=== PATIENT | female | born 1975 | race Caucasian/White ===

== ENCOUNTER 2018-10-08 16:48 | Emergency (ER) | payer SELFPAY ==
--- NOTE | 2018-10-08 16:56 | ER Report ---
History and Physical Time Seen By MD: 16:56 HPI/ROS CHIEF COMPLAINT: Alcohol withdrawal HISTORY OF PRESENT ILLNESS: This is a 43-year-old female presents to the emergency department wanting to withdrawal from alcohol. Patient states that she's had about 20 years of alcohol addiction, she states she went to couple of inpatient rehabilitation centers, was sober for about 5 years, relapsed, then was sober for the last couple years up until a couple of weeks ago, when her mother , she started drinking a 5th of whiskey a day, progressively getting worse, she states she is up here visiting a friend, she was trying to hide the amount of alcohol that she was drinking from him, however he realized that she had been drinking a substantial amount, recommended coming in for evaluation, patient is agreeable, and is here on a voluntary basis. She states that yesterday she drank roughly 2 gallons of whiskey plus a couple of fifths, woke up this morning around 11:00 began having some shaking episodes, did drink another 5th last drink was about 30-40 minutes prior to arrival. Patient has a strong odor of EtOH. She is shaking, normal speech, making good eye contact, tearful. She denies fevers or chills. No chest pain during this episode however she states that she has had episodes of chest pain in the past. No shortness of breath. No rashes. Denies suicidal or homicidal ideations. REVIEW OF SYSTEMS: Constitutional: No fever, no chills. Eyes: No discharge. ENT: No sore throat. Cardiovascular: No chest pain, no palpitations. Respiratory: No cough, no shortness of breath. Gastrointestinal: No abdominal pain, no vomiting. Genitourinary: No hematuria. Musculoskeletal: No back pain. Skin: No rashes. Neurological: As above. Psychological: As above. Allergies: Coded Allergies: No Known Allergies (Verified Allergy, Unknown, 10/08/18) Home Meds Reported Medications Gabapentin (GABAPENTIN) 300 Mg Capsule, 300 MG PO HS, CAPSULE 10/08/18 Trazodone Hcl (TRAZODONE HCL) 150 Mg Tablet, 150 MG PO QHS 10/08/18 Sertraline Hcl (SERTRALINE HCL) 100 Mg Tablet, 1 TAB PO QDAY, TAB 10/08/18 Past Medical/Surgical History The patient has a past medical and surgical history of dental surgery, tonsillectomy, , alcoholism 20 years. Reviewed Nurses Notes: Yes Constitutional Vital Sign - Last 24 Hours 10/08/18 10/08/18 10/08/18 10/08/18 16:48 16:55 17:00 17:00 Temp 98.7 Pulse 128 130 Resp 14 17 B/P (MAP) 127/109 (115) 125/102 (110) 127/109 Pulse Ox 92 91 O2 Delivery Room Air 10/08/18 10/08/18 10/08/18 10/08/18 17:18 17:31 17:48 18:00 Pulse 110 111 Resp 14 B/P (MAP) 121/88 (99) 120/80 (93) Pulse Ox 93 91 10/08/18 10/08/18 10/08/18 10/08/18 18:18 18:23 18:30 18:53 Pulse 123 130 127 Resp 11 17 13 B/P (MAP) ???/??? (1665) Pulse Ox 92 90 91 10/08/18 10/08/18 19:00 19:23 Pulse 128 Resp 13 B/P (MAP) 105/68 (80) Pulse Ox 91 Intake and Output0 10/08/18 10/08/18 10/09/18 15:00 23:00 07:00 Intake Total 1015.2 ml Balance 1015.2 ml Physical Exam General Appearance: The patient is alert, has no immediate need for airway protection and no signs of toxicity. Eyes: Pupils equal and round no pallor or injection. EOMs intact. ENT, Mouth: Mucous membranes are dry. Respiratory: There are no retractions, lungs are clear to auscultation. Cardiovascular: Regular rate and rhythm, no murmurs, clicks or rubs. Gastrointestinal: Abdomen is soft and non tender, no masses, bowel sounds normal. Neurological: Alert and oriented 4. Moving all extremities. Following all commands. No focal neuro deficits. Skin: Warm and dry, no rashes. Musculoskeletal: Neck is supple non tender. Extremities are nontender, nonswollen and have full range of motion. Psychological: Patient is making good eye contact, tearful, will bring her hands together periodically, she is shaky, does not appear to be agitated, very forthcoming with her current illness, no suicidal or homicidal ideations. DIFFERENTIAL DIAGNOSIS: After history and physical exam differential diagnosis was considered for alcohol intoxication. Medical Decision Making Data Points Result Diagram: 10/08/18 1700 10/08/18 1700 Laboratory Hematology Test 10/08/18 17:00 Red Blood Count 4.91 M/uL (4.17-5.56) Mean Corpuscular Volume 95.2 fL (80.0-96.0) Mean Corpuscular Hemoglobin 32.8 pg (26.0-33.0) Mean Corpuscular Hemoglobin Concent 34.4 g/dL (32.0-36.0) Red Cell Distribution Width 14.1 % (11.5-14.5) Mean Platelet Volume 8.0 fL (7.2-11.1) Neutrophils (%) (Auto) 62.3 % (39.4-72.5) Lymphocytes (%) (Auto) 27.7 % (17.6-49.6) Monocytes (%) (Auto) 9.0 % (4.1-12.4) Eosinophils (%) (Auto) 0.4 % (0.4-6.7) Basophils (%) (Auto) 0.6 % (0.3-1.4) Nucleated RBC Relative Count (auto) 0.0 /100WBC Neutrophils # (Auto) 8.7 K/uL (2.0-7.4) Lymphocytes # (Auto) 3.9 K/uL (1.3-3.6) Monocytes # (Auto) 1.3 K/uL (0.3-1.0) Eosinophils # (Auto) 0.1 K/uL (0.0-0.5) Basophils # (Auto) 0.1 K/uL (0.0-0.1) Nucleated RBC Absolute Count (auto) 0.00 K/uL Urine Color Straw Urine Clarity Clear Urine pH 7.0 pH (4.8-9.5) Urine Specific [place] 1.002 Urine Protein Negative mg/dL (NEGATIVE) Urine Glucose (UA) Negative mg/dL (NEGATIVE) Urine Ketones Trace mg/dL (NEGATIVE) Urine Blood Moderate (NEGATIVE) Urine Nitrite Negative (NEGATIVE) Urine Bilirubin Negative (NEGATIVE) Urine Urobilinogen Negative mg/dL (0.2-1.9) Urine Leukocyte Esterase Negative (NEGATIVE) Urine RBC <1 /HPF (0-2/HPF) Urine WBC 1 /HPF (0-5/HPF) Urine Squamous Epithelial Cells Few /LPF (</=FEW) Urine Bacteria Negative /HPF (NONE-FEW) Urine Mucus None /HPF (NONE-FEW) Urine HCG, Qualitative Negative (NEGATIVE) Sodium Level 140 mmol/L (137-145) Potassium Level 3.3 mmol/L (3.5-5.0) Chloride Level 104 mmol/L (98-107) Carbon Dioxide Level 18 mmol/L (22-31) Blood Urea Nitrogen 6 mg/dl (7-18) Creatinine 0.50 mg/dl (0.52-1.04) Glomerular Filtration Rate Calc > 60.0 Random Glucose 103 mg/dl (75-110) Calcium Level 9.5 mg/dl (8.4-10.2) Magnesium Level 2.0 mg/dl (1.7-2.2) Total Bilirubin 1.7 mg/dl (0.2-1.3) Aspartate Amino Transf (AST/SGOT) 99 U/L (0-35) Alanine Aminotransferase (ALT/SGPT) 54 U/L (0-56) Alkaline Phosphatase 98 U/L (0-126) Total Protein 8.4 g/dl (6.3-8.2) Albumin 5.2 g/dl (3.5-5.0) Salicylates Level < 10 mg/L Salicylate Last Dose Date unk Urine Opiates Screen Negative Acetaminophen Level < 10 ug/ml Urine Barbiturates Screen Negative Ur Tricyclic Antidepressants Screen Negative Urine Phencyclidine Screen Negative Urine Amphetamines Screen Negative Urine Benzodiazepines Screen Negative Urine Cocaine Screen Negative Urine Cannabinoids Screen Negative Serum Alcohol 249 mg/dl Chemistry Test 10/08/18 17:00 White Blood Count 14.0 k/uL (4.5-11.0) Red Blood Count 4.91 M/uL (4.17-5.56) Hemoglobin 16.1 g/dL (12.0-16.0) Hematocrit 46.8 % (34.0-47.0) Mean Corpuscular Volume 95.2 fL (80.0-96.0) Mean Corpuscular Hemoglobin 32.8 pg (26.0-33.0) Mean Corpuscular Hemoglobin Concent 34.4 g/dL (32.0-36.0) Red Cell Distribution Width 14.1 % (11.5-14.5) Platelet Count 430 K/uL (150-450) Mean Platelet Volume 8.0 fL (7.2-11.1) Neutrophils (%) (Auto) 62.3 % (39.4-72.5) Lymphocytes (%) (Auto) 27.7 % (17.6-49.6) Monocytes (%) (Auto) 9.0 % (4.1-12.4) Eosinophils (%) (Auto) 0.4 % (0.4-6.7) Basophils (%) (Auto) 0.6 % (0.3-1.4) Nucleated RBC Relative Count (auto) 0.0 /100WBC Neutrophils # (Auto) 8.7 K/uL (2.0-7.4) Lymphocytes # (Auto) 3.9 K/uL (1.3-3.6) Monocytes # (Auto) 1.3 K/uL (0.3-1.0) Eosinophils # (Auto) 0.1 K/uL (0.0-0.5) Basophils # (Auto) 0.1 K/uL (0.0-0.1) Nucleated RBC Absolute Count (auto) 0.00 K/uL Urine Color Straw Urine Clarity Clear Urine pH 7.0 pH (4.8-9.5) Urine Specific [place] 1.002 Urine Protein Negative mg/dL (NEGATIVE) Urine Glucose (UA) Negative mg/dL (NEGATIVE) Urine Ketones Trace mg/dL (NEGATIVE) Urine Blood Moderate (NEGATIVE) Urine Nitrite Negative (NEGATIVE) Urine Bilirubin Negative (NEGATIVE) Urine Urobilinogen Negative mg/dL (0.2-1.9) Urine Leukocyte Esterase Negative (NEGATIVE) Urine RBC <1 /HPF (0-2/HPF) Urine WBC 1 /HPF (0-5/HPF) Urine Squamous Epithelial Cells Few /LPF (</=FEW) Urine Bacteria Negative /HPF (NONE-FEW) Urine Mucus None /HPF (NONE-FEW) Urine HCG, Qualitative Negative (NEGATIVE) Glomerular Filtration Rate Calc > 60.0 Calcium Level 9.5 mg/dl (8.4-10.2) Magnesium Level 2.0 mg/dl (1.7-2.2) Total Bilirubin 1.7 mg/dl (0.2-1.3) Aspartate Amino Transf (AST/SGOT) 99 U/L (0-35) Alanine Aminotransferase (ALT/SGPT) 54 U/L (0-56) Alkaline Phosphatase 98 U/L (0-126) Total Protein 8.4 g/dl (6.3-8.2) Albumin 5.2 g/dl (3.5-5.0) Salicylates Level < 10 mg/L Salicylate Last Dose Date unk Urine Opiates Screen Negative Acetaminophen Level < 10 ug/ml Urine Barbiturates Screen Negative Ur Tricyclic Antidepressants Screen Negative Urine Phencyclidine Screen Negative Urine Amphetamines Screen Negative Urine Benzodiazepines Screen Negative Urine Cocaine Screen Negative Urine Cannabinoids Screen Negative Serum Alcohol 249 mg/dl Toxicology Test 10/08/18 17:00 Salicylates Level < 10 mg/L Salicylate Last Dose Date unk Urine Opiates Screen Negative Acetaminophen Level < 10 ug/ml Urine Barbiturates Screen Negative Ur Tricyclic Antidepressants Screen Negative Urine Phencyclidine Screen Negative Urine Amphetamines Screen Negative Urine Benzodiazepines Screen Negative Urine Cocaine Screen Negative Urine Cannabinoids Screen Negative Serum Alcohol 249 mg/dl Urinalysis Test 10/08/18 17:00 Urine Color Straw Urine Clarity Clear Urine pH 7.0 pH (4.8-9.5) Urine Specific [place] 1.002 Urine Protein Negative mg/dL (NEGATIVE) Urine Glucose (UA) Negative mg/dL (NEGATIVE) Urine Ketones Trace mg/dL (NEGATIVE) Urine Blood Moderate (NEGATIVE) Urine Nitrite Negative (NEGATIVE) Urine Bilirubin Negative (NEGATIVE) Urine Urobilinogen Negative mg/dL (0.2-1.9) Urine Leukocyte Esterase Negative (NEGATIVE) Urine RBC <1 /HPF (0-2/HPF) Urine WBC 1 /HPF (0-5/HPF) Urine Squamous Epithelial Cells Few /LPF (</=FEW) Urine Bacteria Negative /HPF (NONE-FEW) Urine Mucus None /HPF (NONE-FEW) Urine HCG, Qualitative Negative (NEGATIVE) ED Course/Re-evaluation Clinical Indication for ER IV: Hydration, IV Access ED Course The patient was admitted to room. A history and physical were obtained. Differential diagnoses were considered. IV was started. A CBC, CMP, psych panel, tox screen and UA were collected. A banana bag was given. Patient's CIWA was 20, she was given 1 mg IV Ativan. The patient had significant improvement of her anxiety and shakiness.CBC showing WBC 14, potassium 3.3, CO2 18, AST 99, ALT 54, negative tox screen, blood alcohol 249, negative UA. The patient was evaluated by with the behavioral health technicians, the patient didn't sign in to behavioral health unit voluntarily, I did speak with Christina Boyer, the therapist marketing communications coordinator, she is accepted the patient and the behavioral health unit for alcohol detox. Patient was in agreement with this plan of care. 10/08/2018 6:45:29 pm I did speak with Christina Boyer, the therapist marketing communications coordinator, she is accepting the patient at the behavioral health unit for alcohol detox. Decision to Disposition Date: Oct 08, 2018 Decision to Disposition Time: 18:45 Depart Departure Latest Vital Signs Vital Signs Date Time Temp Pulse Resp B/P (MAP) Pulse Ox O2 Delivery O2 Flow Rate FiO2 10/08/18 19:23 128 13 91 10/08/18 19:00 105/68 (80) 10/08/18 17:00 98.7 Room Air Impression: Primary Impression: Alcohol intoxication Condition: Improved Disposition: XFER TO [facility] Problem Qualifiers Primary Impression: Alcohol intoxication Complication of substance-induced condition: with unspecified complication Qualified Codes: F10.929 - Alcohol use, unspecified with intoxication, unspecified ANA POP-ERIKA Oct 08, 2018 16:56
[2018-10-08] MEDS ORDERED: THIAMINE HCL(*) 200 MG/2 ML IN 100 MG, FOLIC ACID(*) 50 MG/10 ML INJ 1 MG, MULTIVITAMIN... IV ONE ×2 (17:05→17:15)
[2018-10-08] MEDS ORDERED: TRAZ150T8 PO (17:08)
[2018-10-08] MEDS ORDERED: SERT-181 PO (17:08)
[2018-10-08] MEDS ORDERED: GABA-549 PO (17:08)
[2018-10-08 17:15] LABS: PLATELET COUNT, AUTOMATED 430 K/uL (150-450)
[2018-10-08] MEDS ORDERED: ONDANSETRON 4 MG/2 ML VIAL IVP ONE (17:20)
[2018-10-08] MEDS ORDERED: LORazepam 2 MG/ML VIAL IVP ONE (17:25)
[2018-10-08 19:00] VITALS: BP 105/68
== END 2018-10-08 19:39 ==
LOC: ER 17:17
DX: F10.929 Alcohol use, unspecified with intoxication, unspecified (principal); F41.9 Anxiety disorder, unspecified; R25.1 Tremor, unspecified; Y90.8 Blood alcohol level of 240 mg/100 ml or more
CPT/HCPCS: 80305; 80320; 80329; 81001; 81025; 83735; 84443; 85025; 96365; 96366; 96375; 99284; J2060; J2405; J3411; J3475; J7030; 82040; 82247; 82310; 82374; 82435; 82565; 82947; 84075; 84132; 84155; 84295; 84450; 84460; 84520

== ENCOUNTER 2018-10-08 18:54 | Inpatient (IN) | payer SELFPAY ==
[~2018-10-08] VITALS: Ht 160 cm; Wt 61.2 kg
[~2018-10-08 18:54] MED LIST: GABA-549 PO; SERT-181 PO; TRAZ150T8 PO
[2018-10-08 20:05] VITALS: BP 131/94
[2018-10-08] MEDS ORDERED: MAG HYD/AL HYD/SIMETH 30ML UDC PO PRN (20:20)
[2018-10-08] MEDS ORDERED: LOPERAMIDE HCL 2 MG CAP PO PRN (20:20)
[2018-10-08] MEDS: DIAZEPAM 10 MG TAB PO PRN ×3 (20:30→22:37)
[2018-10-08] MEDS ORDERED: LOPERAMIDE HCL 2 MG CAP PO ONE (20:30)
[2018-10-09] MEDS: DIAZEPAM 10 MG TAB PO PRN ×9 (02:27→22:23)
[2018-10-09 05:57] VITALS: BP 96/60
[2018-10-09 08:05] VITALS: BP 98/64
[2018-10-09] MEDS: FOLIC ACID 1 MG TAB PO SCH (08:17)
[2018-10-09] MEDS: MULTIVITAMINS PO SCH (08:17)
[2018-10-09] MEDS: THIAMINE HCL 100 MG TAB PO SCH (08:17)
[2018-10-09] MEDS: NICOTINE 21 MG/24 HR PATCH TD SCH (08:22)
[2018-10-09 11:25] VITALS: BP 118/86
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
[2018-10-09 17:00] VITALS: BP 116/90
[2018-10-09 20:15] VITALS: BP 100/60
[2018-10-09] MEDS: GABAPENTIN 300 MG CAP PO SCH (20:28)
[2018-10-10 01:00] VITALS: BP 103/84
[2018-10-10 04:40] VITALS: BP 95/73
[2018-10-10] MEDS: THIAMINE HCL 100 MG TAB PO SCH (08:12)
[2018-10-10] MEDS: FOLIC ACID 1 MG TAB PO SCH (08:12)
[2018-10-10] MEDS: MULTIVITAMINS PO SCH (08:12)
[2018-10-10] MEDS: NICOTINE 21 MG/24 HR PATCH TD SCH (08:13)
[2018-10-10] MEDS: DIAZEPAM 10 MG TAB PO PRN ×11 (08:23→23:53)
--- NOTE | 2018-10-10 12:04 | BHS Progress Note ---
[facility] - Subjective Progress Notes Subjective "Im okay.' Reports that she slept a few hours last night. She continues to be monitored per [facility] protocol and continues in active withdrawal. She rates depression level a 9 or 10, anxiety level a 10, guilt 10. She denies SI. She denies hallucinations. She is considering residential treatment Suicidal Ideation: None Homicidal Ideation: None S - Objective Physical Exam Vital Signs Vital Signs Date Time Temp Pulse Resp B/P (MAP) Pulse Ox O2 Delivery O2 Flow Rate FiO2 10/10/18 04:40 97.9 83 15 95/73 (80) 94 Room Air Muscle Strength and Tone: WNL Gait and Station: Steady [facility] Medications Reviewed: Side Effects, Benefits of Medication, Risks Allergies Reviewed: Yes Mental Status Exam General Appearance: Casual, Well Groomed, Good Eye Contact, Cooperative, Polite, Good Interaction, Tearful; No Psychomotor Agitation, No Psychomotor Retardation, No Bizarre Mannerisms, No Tics Speech: Clear, Spontaneous, Normal Rate, Normal Rhythm, Normal Volume, Normal Tone Mood: Dysthmic/Depressed Affect: Calm, Sad, Tearful, Anxious Thought Process: Organized, Logical, Goal Directed; No Loose Associations, No Flight of Ideas Thought Content: No Suicidal Ideation, No Homicidal Ideation, No Delusions, No Auditory Halllucinations, No Visual Hallucinations, No Thought Broadcasting, No Ideas of Reference, No Obsessions, No Compulsions Sensorium: Clear Cognition: Alert & Oriented-Person, Alert & Oriented-Place, Alert & Oriented- Time, [id number] Memory: Immediate, Recent, Remote Intelligence: Average Insight Judgment: Fair [facility] Assessment and Plan [id number] Encounter Date: Oct 10, 2018 [id number] Encounter Time: 09:30 [facility] Plan: Admit to Unit, Necessary Precautions, Individual/Group Therapy, Admin/Titrate Meds, Educate Patient Tobacco Medications: Started Multpiple Antipsychotics Used: No Problems: (1) Alcohol withdrawal Status: Acute (2) Alcohol use disorder, severe, dependence Status: Acute (3) Alcohol intoxication Status: Resolved AFUA HERNANDEZ NP Oct 10, 2018 12:04
[2018-10-10 12:05] VITALS: BP 128/90
[2018-10-10 18:35] VITALS: BP 110/88
[2018-10-10] MEDS ORDERED: NICOTINE POLACRILEX 2 MG GUM PO PRN (19:20)
[2018-10-10] MEDS ORDERED: NICOTINE CARTRIDGE 1 EA PO PRN (20:00)
[2018-10-10] MEDS ORDERED: NICOTINE INH SYSTEM 10 MG/INH INH PRN (20:00)
[2018-10-10] MEDS: GABAPENTIN 300 MG CAP PO SCH (20:25)
[2018-10-10 21:45] VITALS: BP 105/83
[2018-10-11] MEDS: DIAZEPAM 10 MG TAB PO PRN ×6 (01:08→20:57)
[2018-10-11 05:34] VITALS: BP 89/64
[2018-10-11] MEDS: FOLIC ACID 1 MG TAB PO SCH (08:27)
[2018-10-11] MEDS: THIAMINE HCL 100 MG TAB PO SCH (08:27)
[2018-10-11] MEDS: MULTIVITAMINS PO SCH (08:27)
[2018-10-11 11:44] VITALS: BP 103/80
--- NOTE | 2018-10-11 12:59 | BHS Progress Note ---
[facility] - Subjective Progress Notes Subjective Pt seen in treatment team meeting with staff. Pt is still in active alcohol withdrawal, she scored a 20 this morning and so we did repeat a full load of 20mg q 1 hr X 3 doses. She is remorseful, guilty, depressed. Admits to passive wishes but no active suicidal ideation. Still tremulous, but a bit less so than yesterday per pt's report. We discussed her plans for rehab, she is thinking she does want to go to an in-pt rehab after detox, but is not sure where. Will go ahead and place a PPD. Continue [facility] protocol. Suicidal Ideation: None Homicidal Ideation: None [facility] - Objective Physical Exam Vital Signs Vital Signs 10/10/18 10/11/18 21:45 05:34 Temp 98.0 Pulse 90 Resp 15 B/P (MAP) 89/64 (72) Pulse Ox 94 O2 Delivery Room Air Muscle Strength and Tone: WNL Gait and Station: Steady [facility] Medications Reviewed: Side Effects, Benefits of Medication, Risks Allergies Reviewed: Yes Mental Status Exam General Appearance: Casual, Well Groomed, Good Eye Contact, Cooperative, Polite, Good Interaction, Tearful; No Psychomotor Agitation, No Psychomotor Ret ardation, No Bizarre Mannerisms, No Tics Speech: Clear, Spontaneous, Normal Rate, Normal Rhythm, Normal Volume, Normal Tone Mood: Dysthmic/Depressed Affect: Calm, Sad, Tearful, Anxious Thought Process: Organized, Logical, Goal Directed; No Loose Associations, No Flight of Ideas Thought Content: No Suicidal Ideation, No Homicidal Ideation, No Delusions, No Auditory Halllucinations, No Visual Hallucinations, No Thought Broadcasting, No Ideas of Reference, No Obsessions, No Compulsions Sensorium: Clear Cognition: Alert & Oriented-Person, Alert & Oriented-Place, Alert & Oriented- Time, Ijhfn-Gfvfvqht-Pmjovzdnq Memory: Immediate, Recent, Remote Intelligence: Average Insight Judgment: Fair [facility] Assessment and Plan Ocdh-de-Gbtn Encounter Date: Oct 11, 2018 Mfol-bt-Vqov Encounter Time: 09:30 [facility] Plan: Admit to Unit, Necessary Precautions, Individual/Group Therapy, Admin/Titrate Meds, Educate Patient Tobacco Medications: Started Multpiple Antipsychotics Used: No Problems: (1) Alcohol withdrawal Status: Acute (2) Alcohol use disorder, severe, dependence Status: Acute VALDERRAMA,HUMBERTO MD Oct 11, 2018 12:59
[2018-10-11] MEDS: NICOTINE 21 MG/24 HR PATCH TD SCH (14:20)
[2018-10-11] MEDS ORDERED: NALT50TA15 PO (16:00)
[2018-10-11] MEDS ORDERED: SUMA100T33 PO (16:00)
[2018-10-11 16:13] VITALS: BP 120/85
[2018-10-11] MEDS ORDERED: IBUPROFEN 600 MG TAB PO PRN (16:30)
[2018-10-11 18:00] VITALS: BP 100/69
[2018-10-11] MEDS: GABAPENTIN 300 MG CAP PO SCH (20:43)
[2018-10-11 20:45] VITALS: BP 110/75
[2018-10-11] MEDS ORDERED: traZODone HCL 50 MG TAB PO SCH (21:00)
[2018-10-12 01:34] VITALS: BP 99/65
[2018-10-12] MEDS: THIAMINE HCL 100 MG TAB PO SCH (08:24)
[2018-10-12] MEDS: FOLIC ACID 1 MG TAB PO SCH (08:24)
[2018-10-12] MEDS: MULTIVITAMINS PO SCH (08:24)
[2018-10-12] MEDS: NICOTINE 21 MG/24 HR PATCH TD SCH (08:27)
[2018-10-12 08:49] VITALS: BP 97/76
[2018-10-12] MEDS: DIAZEPAM 10 MG TAB PO SCH ×2 (09:17→21:43)
--- NOTE | 2018-10-12 11:20 | BHS Progress Note ---
[facility] - Subjective Progress Notes Subjective Pt seen in conference room with team. She says she is feeling "better than yesterday" in terms of the alcohol withdrawal. Rates anxiety at 6/10, and depression as 6/10. Denies SI. She had a fall last evening-- went to sit down but "missed" the chair. Hit the rt side of her head, parietal region-- there is no swelling there today and only barely tender. She has had a total of 580 mg of valium, so even though she is only scoring a 1 this am on CIWA, will medicate with 20 mg BID today, and continue to taper over next several days to prevent benzo withdrawal. She has been participating actively in groups and education modules re addiction. She is thinking about IOP vs inpatient rehab for after detox is complete. Eating well. Slept poorly last night, so will increase trazodone to 150 mg for tonight. She is probably a candidate for antidepressant and also naltrexone once detox is complete-- will discuss those with her tomorrow. Suicidal Ideation: None Homicidal Ideation: None [facility] - Objective Physical Exam Vital Signs Vital Signs 10/12/18 10/12/18 01:34 08:49 Temp 98.8 Pulse 85 Resp 15 B/P (MAP) 97/76 (83) Pulse Ox 95 O2 Delivery Room Air Muscle Strength and Tone: WNL Gait and Station: Steady [facility] Medications Reviewed: Side Effects, Benefits of Medication, Risks Allergies Reviewed: Yes Mental Status Exam General Appearance: Casual, Well Groomed, Good Eye Contact, Cooperative, Polite, Good Interaction, Tearful; No Psychomotor Agitation, No Psychomotor Retardation, No Bizarre Mannerisms, No Tics Speech: Clear, Spontaneous, Normal Rate, Normal Rhythm, Normal Volume, Normal Tone Mood: Dysthmic/Depressed Affect: Calm, Sad, Tearful, Anxious Thought Process: Organized, Logical, Goal Directed; No Loose Associations, No F light of Ideas Thought Content: No Suicidal Ideation, No Homicidal Ideation, No Delusions, No Auditory Halllucinations, No Visual Hallucinations, No Thought Broadcasting, No Ideas of Reference, No Obsessions, No Compulsions Sensorium: Clear Cognition: Alert & Oriented-Person, Alert & Oriented-Place, Alert & Oriented- Time, Rxnco-Gkiwdoos-Vfbxoofzo Memory: Immediate, Recent, Remote Intelligence: Average Insight Judgment: Fair [facility] Assessment and Plan Egyc-ng-Tiza Encounter Date: Oct 12, 2018 Lfma-ig-Vtrx Encounter Time: 09:30 [facility] Plan: Admit to Unit, Necessary Precautions, Individual/Group Therapy, Admin/Titrate Meds, Educate Patient Tobacco Medications: Started Multpiple Antipsychotics Used: No Problems: (1) Alcohol withdrawal Status: Acute (2) Alcohol use disorder, severe, dependence Status: Acute (3) Substance induced mood disorder HUMBERTO VALDERRAMA MD Oct 12, 2018 11:20
[2018-10-12 14:10] VITALS: BP 96/72
[2018-10-12] MEDS: traZODone HCL 50 MG TAB PO SCH (21:43)
[2018-10-12] MEDS: GABAPENTIN 300 MG CAP PO SCH (21:43)
[2018-10-13 05:50] VITALS: BP 90/58
[2018-10-13 07:31] LABS: PLATELET COUNT, AUTOMATED 182 K/uL (150-450)
[2018-10-13] MEDS: MULTIVITAMINS PO SCH (08:16)
[2018-10-13] MEDS: THIAMINE HCL 100 MG TAB PO SCH (08:16)
[2018-10-13] MEDS: FOLIC ACID 1 MG TAB PO SCH (08:16)
[2018-10-13] MEDS: NICOTINE 21 MG/24 HR PATCH TD SCH (08:17)
[2018-10-13] MEDS ORDERED: DIAZEPAM 10 MG TAB PO SCH (09:00)
[2018-10-13] MEDS: CITALOPRAM HYDROBROM 20 MG TAB PO SCH (11:04)
[2018-10-13] MEDS ORDERED: NICOTINE CARTRIDGE 1 EA PO PRN (11:25)
[2018-10-13] MEDS: NICOTINE INH SYSTEM 10 MG/INH INH PRN ×7 (11:39→22:15)
--- NOTE | 2018-10-13 18:25 | BHS Progress Note ---
[facility] - Subjective Progress Notes Subjective Pt seen in treatment team with her friend Joe on speaker phone. Pt says she is feeling better. She is no longer scoring on CIWA-- we will cut her standing dose valium to 5 mg BID today then DC (to prevent benzo withdrawal given high dose she needed for detox. She is still expressing a depressed mood, and we discussed her past history with antidepressants. She did not like zoloft; she found celexa most helpful, so we will start her on that. Tentative discharge tomorrow if med well tolerated. Plan to arrange IOP at [facility]. Suicidal Ideation: None Homicidal Ideation: None [facility] - Objective Physical Exam Vital Signs Vital Signs 10/13/18 05:50 Temp 98.1 Pulse 72 Resp 14 B/P (MAP) 90/58 (69) Pulse Ox 93 O2 Delivery Room Air Muscle Strength and Tone: WNL Gait and Station: Steady [facility] Medications Reviewed: Side Effects, Benefits of Medication, Risks Allergies Reviewed: Yes Mental Status Exam General Appearance: Casual, Well Groomed, Good Eye Contact, Cooperative, Polite, Good Interaction, Tearful; No Psychomotor Agitation, No Psychomotor Retardation, No Bizarre Mannerisms, No Tics Speech: Clear, Spontaneous, Normal Rate, Normal Rhythm, Normal Volume, Normal Tone Mood: Dysthmic/Depressed Affect: Calm, Sad, Tearful, Anxious Thought Process: Organized, Logical, Goal Directed; No Loose Associations, No Flight of Ideas Thought Content: No Suicidal Ideation, No Homicidal Ideation, No Delusions, No Auditory Halllucinations, No Visual Hallucinations, No Thought Broadcasting, No Ideas of Reference, No Obsessions, No Compulsions Sensorium: Clear Cognition: Alert & Oriented-Person, Alert & Oriented-Place, Alert & Oriented- Time, Sfosi-Fxlbawmn-Apvricscg Memory: Immediate, Recent, Remote Intelligence: Average Insight Judgment: Fair Result Diagram: 10/13/18 0714 10/13/18 0714 [facility] Assessment and Plan Ddlw-gw-Sawb Encounter Date: Oct 13, 2018 Vbmu-ol-Djji Encounter Time: 10:30 [facility] Plan: Admit to Unit, Necessary Precautions, Individual/Group Therapy, Admin/Titrate Meds, Educate Patient Tobacco Medications: Started Multpiple Antipsychotics Used: No Problems: (1) Alcohol withdrawal Status: Acute (2) Alcohol use disorder, severe, dependence Status: Acute (3) Substance induced mood disorder HUMBERTO VALDERRAMA MD Oct 13, 2018 18:25
[2018-10-13] MEDS: GABAPENTIN 300 MG CAP PO SCH (21:18)
[2018-10-13] MEDS: traZODone HCL 50 MG TAB PO SCH ×2 (21:18→21:44)
[2018-10-13] MEDS: DIAZEPAM 5 MG TAB PO SCH (21:44)
[2018-10-14 05:57] VITALS: BP 96/60
[2018-10-14] MEDS: MULTIVITAMINS PO SCH (08:57)
[2018-10-14] MEDS: DIAZEPAM 5 MG TAB PO SCH (08:58)
[2018-10-14] MEDS: THIAMINE HCL 100 MG TAB PO SCH (08:58)
[2018-10-14] MEDS: FOLIC ACID 1 MG TAB PO SCH (08:58)
[2018-10-14] MEDS: CITALOPRAM HYDROBROM 20 MG TAB PO SCH (08:58)
[2018-10-14] MEDS: NICOTINE INH SYSTEM 10 MG/INH INH PRN ×3 (12:26→15:50)
[2018-10-14] MEDS ORDERED: CITA-145 PO (13:44)
[2018-10-14] MEDS ORDERED: NICOTINE PO (13:48)
[2018-10-14] MEDS ORDERED: NIC10R INH (13:48)
--- NOTE | 2018-10-15 17:53 | BHS Discharge Summary ---
[facility] Discharge Summary Cqyq-tk-Omce Encounter Date: Oct 14, 2018 Mvks-tl-Lqmy Encounter Time: 10:00 Reason-Hosp/Final Diag (DSM-V): (1) Alcohol withdrawal Status: Acute Hospital Course & Plan: PRESENTING PROBLEM/CHIEF COMPLAINT "I was going through withdrawals from the alcohol. I thought I could do it on my own, but I couldn't." HISTORY OF PRESENT ILLNESS This is a 43-year-old female admitted to the unit on a voluntary basis after she presented requesting help with alcohol detox. She reports that she had recently relapsed and had tried to stop drinking on her own for two days; however, due to symptoms of tremors, nausea, and poor sleep, she drank a pint on the day of admission in order to stop the symptoms. She had then presented to the [facility] Room with a blood alcohol level of 249. She reports that she had been drinking for the past two weeks, drinking a fifth of whiskey plus a pint of whiskey daily. Prior to this, she had been sober for a couple of years. She reports that her mother had in June, at which time she did relapse briefly, and then she stopped drinking on her own, however, started again in the past two weeks. She recently came to [facility] and is staying with a friend. She lives in [place], [place], however, had lost her job due to missing work. Some of it was due to missing work because of her drinking. She has been treated for depression by her primary care provider; however, she had not been taking her sertraline for the past couple of weeks. She did not feel that the Sertraline was very helpful anyway. She reports when she feels depressed, she does not want to get out of bed. She is sad. She is tearful. She has trouble falling and staying asleep. She has been having passive suicidal ideation and wishing she was not here. She feels especially guilty because of her relapse. However, she firmly denies any intent to harm herself. She rates her current depression level a 10, current anxiety level a 10, anger a zero, guilt and shame a 10. HOSPITAL COURSE Pt admitted to [facility] and detoxed with valium per [facility] protocol. Detox was uncomplicated but she did require large amount (over 500 mg) of valium. She was pleasant and active in her treatment. She participated in alcohol education, sobriety skills, met with AA members. Once detox was over she was started on Celexa for depression, she was also placed on naltrexone to diminish cravings. Her friend Joe participated in her treatment team meetings, and she will live with him in [place] until she gets her own place. She will follow up at [facility]. (2) Alcohol use disorder, severe, dependence Status: Acute (3) Substance induced mood disorder Physical Exam Latest Vital Signs Vital Signs 10/14/18 05:57 Temp 97.9 Pulse 69 Resp 15 B/P (MAP) 96/60 (72) Pulse Ox 91 O2 Delivery Room Air Mental Status Exam General Appearance: Casual, Well Groomed, Good Eye Contact, Cooperative, Polite, Good Interaction, Tearful; No Psychomotor Agitation, No Psychomotor Retardation, No Bizarre Mannerisms, No Tics Speech: Clear, Spontaneous, Normal Rate, Normal Rhythm, Normal Volume, Normal Tone Mood: Euthymic Affect: Full and Appropriate, Calm Thought Process: Organized, Logical, Goal Directed; No Loose Associations, No Flight of Ideas Thought Content: No Suicidal Ideation, No Homicidal Ideation, No Delusions, No Auditory Halllucinations, No Visual Hallucinations, No Thought Broadcasting, No Ideas of Reference, No Obsessions, No Compulsions Sensorium: Clear Cognition: Alert & Oriented-Person, Alert & Oriented-Place, Alert & Oriented- Time, Jwidz-Nvzndulp-Uhbmlpjez Memory: Immediate, Recent, Remote Intelligence: Average Insight Judgment: Fair Departure Result Diagram: 10/13/1871310/13/18713 Item Value Date Time White Blood Count 6.7 k/uL 10/13/18 07 Red Blood Count 4.07 M/uL L 10/13/18 0714 Hemoglobin 13.5 g/dL 10/13/18 07 Hematocrit 40.4 % 10/13/18 07 Mean Corpuscular Volume 99.3 fL H 10/13/18 0714 Mean Corpuscular Hemoglobin 33.1 pg H 10/13/18 07 Mean Corpuscular Hemoglobin Concent 33.4 g/dL 10/13/18 07 Red Cell Distribution Width 14.8 % H 10/13/18 07 Platelet Count 182 K/uL 10/13/18 07 Sodium Level 137 mmol/L 10/13/18 0714 Potassium Level 4.1 mmol/L 10/13/18 0714 Chloride Level 102 mmol/L 10/13/18 0714 Carbon Dioxide Level 26 mmol/L 10/13/18 0714 Blood Urea Nitrogen 14 mg/dl 10/13/18 0714 Creatinine 0.70 mg/dl 10/13/18 0714 Glomerular Filtration Rate Calc > 60.0 10/13/18 0714 Random Glucose 90 mg/dl 10/13/18 0714 Calcium Level 9.5 mg/dl 10/13/18 0714 Total Bilirubin 0.2 mg/dl 10/13/18 0714 Alanine Aminotransferase (ALT/SGPT) 41 U/L 10/13/18 0714 Aspartate Amino Transf (AST/SGOT) 32 U/L 10/13/18 0714 Alkaline Phosphatase 53 U/L 10/13/18 0714 Total Protein 6.5 g/dl 10/13/18 0714 Albumin 3.9 g/dl 10/13/18 0714 Urine Color Straw 10/08/18 1700 Urine Clarity Clear 10/08/18 1700 Urine pH 7.0 pH 10/08/18 1700 Urine Specific [place] 1.002 10/08/18 1700 Urine Protein Negative mg/dL 10/08/18 1700 Urine Glucose (UA) Negative mg/dL 10/08/18 1700 Urine Ketones Trace mg/dL 10/08/18 1700 Urine Blood Moderate 10/08/18 1700 Urine Nitrite Negative 10/08/18 1700 Urine Bilirubin Negative 10/08/18 1700 Urine Urobilinogen Negative mg/dL 10/08/18 1700 Urine Leukocyte Esterase Negative 10/08/18 1700 Salicylates Level < 10 mg/L 10/08/18 1700 Salicylate Last Dose Date unk 10/08/18 1700 Urine Opiates Screen Negative 10/08/18 1700 Acetaminophen Level < 10 ug/ml 10/08/18 1700 Urine Barbiturates Screen Negative 10/08/18 1700 Ur Tricyclic Antidepressants Screen Negative 10/08/18 1700 Urine Phencyclidine Screen Negative 10/08/18 1700 Urine Amphetamines Screen Negative 10/08/18 1700 Urine Benzodiazepines Screen Negative 10/08/18 1700 Urine Cocaine Screen Negative 10/08/18 1700 Urine Cannabinoids Screen Negative 10/08/18 1700 Serum Alcohol 249 mg/dl 10/08/18 1700 Tuberculin Skin Test 0 mm 10/11/18 1130 Condition: Improved Discharge to: Home Discharge Instructions Home Meds Reported Medications [Nicotrol [place]] No Conflict Check, 1 EA PO PRN PRN for NICOTINE REPLACEMENT 10/14/18 Nicotine (NICOTROL) 10 Mg/Inh Ctr, 10 MG INH Q2H PRN for NICOTINE REPLACEMENT 10/14/18 Citalopram Hydrobromide (CITALOPRAM HBR) 20 Mg Tablet, 20 MG PO QDAY, #5 TAB 10/14/18 Naltrexone Hcl (NALTREXONE HCL) 50 Mg Tablet, 50 MG PO QAM 10/11/18 Sumatriptan Succinate (SUMATRIPTAN SUCCINATE) 100 Mg Tablet, 100 MG PO PRN for MIGRAINE MAY REPEAT 1 DOSE AFTER 2 HOURS 10/11/18 Trazodone Hcl (TRAZODONE HCL) 150 Mg Tablet, 150 MG PO QHS 10/08/18 Discontinued Reported Medications Gabapentin (GABAPENTIN) 300 Mg Capsule, 300 MG PO HS, CAPSULE 10/08/18 Sertraline Hcl (SERTRALINE HCL) 100 Mg Tablet, 150 MG PO QDAY, TAB 10/08/18 Multpiple Antipsychotics Used: No Diet: Regular Activity: As Tolerated Special Instructions: Take medications as prescribed. Follow up with outpatient provider for medication management. Follow up with outpatient therapy. Abstain from alcohol & all illicit substances. Follow up with [facility] Obtain an [facility] Sponsor & utilize them. Call Crisis Line should symptoms return. HUMBERTO VALDERRAMA MD Oct 15, 2018 17:53
== END 2018-10-14 17:51 | disposition home or self-care (01) | DRG 897 ==
LOC: BHS 18:54
PROVIDERS: ADMIT Registered Nurse Psychiatric/Mental Health, Adult; ATTEND Registered Nurse Psychiatric/Mental Health, Adult
DX: F10.230 Alcohol dependence with withdrawal, uncomplicated (principal); R45.851 Suicidal ideations; F10.24 Alcohol dependence with alcohol-induced mood disorder; F32.9 Major depressive disorder, single episode, unspecified; F17.210 Nicotine dependence, cigarettes, uncomplicated; Y90.8 Blood alcohol level of 240 mg/100 ml or more; Z56.0 Unemployment, unspecified; Z91.5 Personal history of self-harm
CPT/HCPCS: 36415; 82040; 82247; 82310; 82374; 82435; 82565; 82947; 84075; 84132; 84155; 84295; 84450; 84460; 84520; 85025; 86580